=== PATIENT | female | born 1935 | race Caucasian/White ===

== ENCOUNTER 2025-01-02 13:37 | Outpatient (CLI) | payer MEDICARE | END 2025-01-02 13:38 | disposition home or self-care (01) | LOC: CSHMAMMO 13:37 | PROVIDERS: ATTEND Family Medicine | DX: Z78.0 Asymptomatic menopausal state (principal); M85.859 Other specified disorders of bone density and structure, unspecified thigh | CPT/HCPCS: 77080 ==